=== PATIENT | female | born 1960 | race Caucasian/White ===

== ENCOUNTER 2023-04-11 07:25 | Day surgery (SDC) | payer BC ==
[2023-04-03 13:16] VITALS: BMI 31.5
[2023-04-11] MEDS ORDERED: oxyCODONE HCL 5 MG TABLET PO PRN (07:33)
[2023-04-11] MEDS ORDERED: ONDANSETRON 4 MG/2 ML VIAL IVPUSH PRN (07:33)
[2023-04-11] MEDS ORDERED: PROMETHAZINE HCL 25 MG/1 ML VIAL IVPB PRN (07:33)
[2023-04-11] MEDS ORDERED: LACTATED RINGERS SOLUTION 1,000 ML IV SCH (07:45)
[2023-04-11] MEDS ORDERED: EPINEPHrine/PF 1 MG/1 ML (1:1,000) AMPULE ONE (11:12)
[2023-04-11] MEDS ORDERED: BUPIVACAINE HCL/PF 2.5 MG/ML - 30 ML VIAL IJ ONE (11:12)
[2023-04-11] MEDS ORDERED: PROPOFOL 20 ML ONE ×2 (11:24→12:29)
[2023-04-11] MEDS ORDERED: MIDAZOLAM HCL 2 MG/2 ML SINGLE DOSE VIAL ONE (11:24)
[2023-04-11] MEDS ORDERED: LIDOCAINE HCL/PF 2% SDV 5ML VIAL ONE (11:25)
[2023-04-11] MEDS ORDERED: SODIUM CHLORIDE 0.9% P/F 10 ML VIAL IJ ONE (11:25)
[2023-04-11] MEDS ORDERED: ceFAZolin SODIUM 1 GM VIAL ONE (11:25)
[2023-04-11] MEDS ORDERED: ACETAMINOPHEN INJECTION 100 ML IVPB ONE (11:32)
[2023-04-11] MEDS ORDERED: ONDANSETRON 4 MG/2 ML VIAL ONE (11:52)
[2023-04-11] MEDS ORDERED: METOCLOPRAMIDE HCL INJECTION 10 MG/2 ML VIAL ONE (11:52)
[2023-04-11] MEDS ORDERED: DEXAMETHASONE SOD PHOSPHATE 4 MG/1 ML VIAL ONE (11:52)
[2023-04-11] MEDS ORDERED: KETOROLAC TROMETHAMINE 30 MG/1 ML VIAL ONE (12:22)
[2023-04-11] MEDS ORDERED: FENTANYL CITRATE/PF 50 MCG/ML VIAL ONE (12:56)
[2023-04-11 14:37] VITALS: BP 109/68; PULSE 76; RESP 18; TEMP 97.3
[2023-04-11] MEDS ORDERED: ACETAMINOPHEN 500 MG TABLET (FP) PO PRN (19:00)
== END 2023-04-11 14:32 | disposition home or self-care (01) ==
LOC: FASU 07:25
PROVIDERS: ATTEND Plastic Surgery
PROC: 0JBQ0ZX Excision of Right Foot Subcutaneous Tissue and Fascia, Open Approach, Diagnostic (ICD-10-PCS; 2023-04-11)
PROC: 0JBR0ZX Excision of Left Foot Subcutaneous Tissue and Fascia, Open Approach, Diagnostic (ICD-10-PCS; principal; 2023-04-11 12:00)
DX: D17.23 Benign lipomatous neoplasm of skin and subcutaneous tissue of right leg (principal); D17.24 Benign lipomatous neoplasm of skin and subcutaneous tissue of left leg
CPT/HCPCS: 82962; 88304-TC; 94760; J0131